=== PATIENT | male | born 1990 | race Caucasian/White ===

== ENCOUNTER 2016-04-16 16:11 | Emergency (ER) | payer MEDICAID ==
[~2016-04-16] VITALS: Ht 177.8 cm; Wt 95.3 kg
[2016-04-16 16:50] VITALS: BP 161/104
== END 2016-04-16 17:44 | disposition home or self-care (01) ==
LOC: ER 16:17
DX: S62.309A Unspecified fracture of unspecified metacarpal bone, initial encounter for closed fracture (principal); X58.XXXA Exposure to other specified factors, initial encounter; Y93.89 Activity, other specified; Y99.8 Other external cause status; Y92.89 Other specified places as the place of occurrence of the external cause
CPT/HCPCS: 29125; 73130